=== PATIENT | female | born 1980 | race Two or more races ===

== ENCOUNTER 2017-06-27 11:09 | Emergency (ER) | payer OTHER ==
[~2017-06-27] VITALS: Ht 157.5 cm; Wt 96.2 kg
[~2017-06-27 11:09] MED LIST: No meds per pt.; albuterol mdi; symbicort
[2017-06-27 11:46] VITALS: BP 142/87
[2017-06-27 13:01] LABS: BASOPHILS # (AUTO) 0.02 x10^3/uL (0-0.1); BASOPHILS % (AUTO) 0 % (0-1); EOSINOPHILS # (AUTO) 0.08 x10^3/uL (0-0.4); EOSINOPHILS % (AUTO) 1 % (1-7); LYMPHOCYTES # (AUTO) 2.25 x10^3/uL (1-3.4); LYMPHOCYTES % (AUTO) 31 % (22-44); MD NO; MEAN CORPUSCULAR HEMOGLOBIN 30.7 pg (27.0-34.8); MEAN CORPUSCULAR HGB CONC 34.1 g/dL (32.4-35.8); MEAN PLATELET VOLUME 9.4 fL (7.4-10.4); MONOCYTES % (AUTO) 6 % (2-9); NEUTROPHILS # (AUTO) 4.54 x10^3/uL (1.8-6.8); NEUTROPHILS % (AUTO) 62 % (42-75); PLATELET COUNT 227 x10^3/uL (130-400); RED BLOOD COUNT 4.55 x10^6/uL (3.82-5.3); RED CELL DISTRIBUTION WIDTH 13.7 % (9.6-15.2)
[2017-06-27 13:11] LABS: ALBUMIN 4.1 g/dL (3.4-5.0); ANION GAP 6 mmol/L (5-15); CALCIUM 8.6 mg/dL (8.5-10.1); CHLORIDE 107 mmol/L (98-107); CREATININE 0.55 mg/dL (0.55-1.02)
== END 2017-06-27 14:04 | disposition home or self-care (01) ==
LOC: ED 13:36
DX: R07.89 Other chest pain (principal); R05 Cough; R06.00 Dyspnea, unspecified; J45.909 Unspecified asthma, uncomplicated; Z98.51 Tubal ligation status
CPT/HCPCS: 36415; 71045; 80048; 82040; 85025; 93005; 99285

== ENCOUNTER 2018-06-24 08:00 | Outpatient (CLI) | payer OTHER ==
[2018-06-25] MEDS ORDERED: ALBU8.5H8 INH (09:14)
[2018-06-25] MEDS ORDERED: METO25TA91 PO (09:14)
== END 2018-06-24 23:59 | disposition home or self-care (01) ==
LOC: STAR 08:00
PROVIDERS: ATTEND Surgery
DX: Z02.9 Encounter for administrative examinations, unspecified (principal)

== ENCOUNTER 2018-06-29 10:59 | Day surgery (SDC) | payer OTHER ==
[~2018-06-29] VITALS: Ht 157.5 cm; Wt 97.7 kg
[~2018-06-29 10:59] MED LIST changes: +ALBU8.5H8 INH; +BUPIVACAINE/PF-EPI 0.5% 1:200K ONE; +METO25TA91 PO
[2018-06-29] MEDS ORDERED: LACTATED RINGERS 1,000 ML IV SCH (11:17)
[2018-06-29 11:18] VITALS: BP 126/75
[2018-06-29] MEDS ORDERED: LIDOCAINE-MPF 1%, 2ML INFIL ONE (11:30)
[2018-06-29] MEDS ORDERED: CEFAZOLIN 1,000 MG ONE (12:06)
[2018-06-29] MEDS ORDERED: PROPOFOL 50 ML ONE (12:06)
[2018-06-29] MEDS ORDERED: SUCCINYLCHOLINE 20 MG/ML, 10ML ONE (12:06)
[2018-06-29] MEDS ORDERED: ONDANSETRON 2MG/ML, 2ML ONE (12:06)
[2018-06-29] MEDS ORDERED: ROCURONIUM 10MG/ML,5ML ONE (12:06)
[2018-06-29] MEDS ORDERED: DEXAMETHASONE 4 MG/ML, 1ML ONE (12:06)
[2018-06-29] MEDS ORDERED: KETOROLAC 30 MG/1 ML ONE (12:06)
[2018-06-29] MEDS ORDERED: MIDAZOLAM 1 MG/ML, 2ML ONE (12:06)
[2018-06-29] MEDS ORDERED: FENTANYL PF 250 MCG/5ML ONE (12:07)
[2018-06-29] MEDS ORDERED: MIDAZOLAM 1 MG/ML, 2ML IV PRN (13:00)
[2018-06-29] MEDS ORDERED: DIPHENHYDRAMINE 50 MG/ML, 1ML IVPush PRN (13:00)
[2018-06-29] MEDS ORDERED: PROMETHAZINE 12.5 MG SUPP PR PRN (13:00)
[2018-06-29] MEDS ORDERED: MEPERIDINE/PF 25MG/0.5ML IVPush PRN (13:00)
[2018-06-29] MEDS ORDERED: PROMETHAZINE 25 MG/ML, 1ML IV PRN (13:00)
[2018-06-29] MEDS ORDERED: ONDANSETRON ODT 8 MG PO PRN (13:00)
[2018-06-29] MEDS ORDERED: OXYcodone 5 MG/5 ML ORAL.SOL UDC PO PRN (13:00)
[2018-06-29] MEDS ORDERED: MORPHINE SULFATE 4 MG/ML, 1ML IVPush PRN (13:00)
[2018-06-29] MEDS ORDERED: ONDANSETRON 2MG/ML, 2ML IV PRN ×2 (13:00→14:30)
[2018-06-29] MEDS ORDERED: EPHEDRINE 50 MG/ML, 1ML IM PRN (13:00)
[2018-06-29] MEDS ORDERED: PROMETHAZINE 25 MG SUPP PR PRN (13:00)
[2018-06-29] MEDS ORDERED: FENTANYL PF 100 MCG/2ML ONE (13:18)
[2018-06-29] MEDS ORDERED: OXYcodone 5 MG/5 ML ORAL.SOL UDC ONE (13:18)
[2018-06-29] MEDS: FENTANYL PF 100 MCG/2ML IV PRN ×2 (13:34→13:56)
[2018-06-29] MEDS ORDERED: OXYcodone/APAP 5/325MG TABLET PO PRN (14:30)
[2018-06-29] MEDS ORDERED: morphine SULFATE 10 MG/ML, 1ML IV PRN (14:30)
== END 2018-06-29 18:30 | disposition home or self-care (01) ==
LOC: OUT 10:59
PROVIDERS: ATTEND Surgery
DX: K80.10 Calculus of gallbladder with chronic cholecystitis without obstruction (principal); D17.1 Benign lipomatous neoplasm of skin and subcutaneous tissue of trunk; E66.9 Obesity, unspecified; I10 Essential (primary) hypertension; Z98.890 Other specified postprocedural states
CPT/HCPCS: 21930; 47562; 88304; C1760; J0330; J0690; J1100; J1885; J2250; J2405; J2704; J3010; J7120; 88305

== ENCOUNTER 2019-08-06 23:12 | Emergency (ER) | payer OTHER ==
[~2019-08-06] VITALS: Ht 157.5 cm; Wt 98.7 kg
[~2019-08-06 23:12] MED LIST changes: -BUPIVACAINE/PF-EPI 0.5% 1:200K ONE
[2019-08-06 23:15] VITALS: BP 136/61
--- NOTE | 2019-08-06 23:20 | NUR ---
pt ambulates to room from triage with steady gait.
[2019-08-06] MEDS ORDERED: DEXAMETHASONE 4 MG TABLET PO STA (23:55)
[2019-08-06] MEDS ORDERED: DEXAMETHASONE 4 MG TABLET ONE (23:55)
[2019-08-06] MEDS ORDERED: IBUPROFEN 200 MG TABLET ONE (23:55)
[2019-08-06] MEDS ORDERED: IBUPROFEN 800 MG TABLET PO STA (23:55)
--- NOTE | 2019-08-07 00:06 | NUR ---
pt medicated per mar.
--- NOTE | 2019-08-07 00:09 | NUR ---
pt d/c with d/c summary and scripts. pt denies any other needs pertaining to this visit and ambulates to registration desk with steady gait for d/c home.
[2019-08-07] MEDS ORDERED: AMOXICILLIN/CLAV 875-125MG TABLET PO STA (00:10)
[2019-08-07] MEDS ORDERED: AMOXICILLIN/CLAV 875-125MG TABLET ONE (00:14)
--- NOTE | 2019-08-07 00:18 | NUR ---
PT MEDICATED PER MAR.
== END 2019-08-07 00:25 | disposition home or self-care (01) ==
LOC: ED 08-07 00:05
DX: J02.0 Streptococcal pharyngitis (principal); J45.909 Unspecified asthma, uncomplicated
CPT/HCPCS: 99283